=== PATIENT | female | born 2005 | race Hispanic/Latino ===

== ENCOUNTER 2024-10-20 19:23 | Emergency (ER) | payer SELFPAY ==
[~2024-10-20] VITALS: Ht 154.9 cm; Wt 54.9 kg
[2024-10-20 20:33] VITALS: BP 126/73; PULSE 71; RESP 20; TEMP 98.6
--- NOTE | 2024-10-20 21:30 | NUR ---
PATIENT IS UPSET WITH CARE BEING PROVIDED AND IS REQUESTING TO LEAVE AMA; PATIENT WAS REINFORCED BY ED STAFF THAT SHE IS RECIEVING THE CARE SHE NEEDS. PATIENT IS ADAMANT ON LEAVING AMA; ED MD AND MIDLEVEL NOTIFIED; PATIENT AMBULATED OUT OF ED WITH NO ISSUES; IN NO DISTRESS
== END 2024-10-20 21:30 | disposition left against medical advice (07) ==
LOC: EDH 19:23
DX: M54.9 Dorsalgia, unspecified (principal); Z53.21 Procedure and treatment not carried out due to patient leaving prior to being seen by health care provider